=== PATIENT | male | born 1955 | race Caucasian/White ===

== ENCOUNTER → 2018-01-11 | Outpatient (CLI) | payer BC ==
[~2018-01-11] MED LIST: ASPI-999 PO; CATHETER FLUSH 10 ML SYR IV PRN; CIPR-225 PO; REGADENOSON 0.4 MG/5 ML SYR (LEXISCAN) IV ONE; tumeric PO
[2018-01-11 08:59] VITALS: BP 148/93
--- NOTE | 2018-01-11 13:27 | STRESS TEST ---
DATE OF SERVICE: 01/11/2018 RESTING AND POST REGADENOSON TECHNETIUM-99M TETROFOSMIN SPECT CT IMAGING ORDERING PHYSICIAN: Dr. Milton. CLINICAL DIAGNOSIS: Complete heart block, status post pacemaker implantation. Baseline images were carried out after injection of 10.97 mCi technetium-99m Tetrofosmin for stress imaging. This was followed by 0.4 mg regadenoson and 31.3 mCi of technetium-99m Tetrofosmin for stress imaging. The electrocardiogram showed sinus rhythm with right bundle branch block and intermittent premature ventricular contractions throughout the study. The electrocardiogram did not change significantly. The patient tolerated the procedure well. Review of images at rest and following stress does not indicate any significant perfusion defects consistent with significant myocardial ischemia or infarction. Gated images show normal global left ventricular systolic function with normal regional wall motion. Left ventricular ejection fraction is calculated to be 57%. Left ventricular end diastolic volume is 64 mL. TID is absent (1.04). CONCLUSIONS: 1. No evidence of any significant myocardial ischemia or infarction on this study. 2. Normal regional wall motion. 3. Normal global left ventricular systolic function with a calculated ejection fraction of 57%. Job ID: [id number] DocumentID: [id number] Dictated Date: 01/11/2018 10:30:12 Safety Admin Assistant Date: 01/11/2018 13:26:56 Dictated By: MAURICE MILTON MD, MA, FACP, FACC,
== END ==
LOC: CARD 07:04
PROVIDERS: ATTEND Internal Medicine Cardiovascular Disease
DX: I44.2 Atrioventricular block, complete (principal); E66.8 Other obesity; Z95.0 Presence of cardiac pacemaker; Z86.73 Personal history of transient ischemic attack (TIA), and cerebral infarction without residual deficits
CPT/HCPCS: 78452; 93017

== ENCOUNTER 2018-01-16 10:03 | Day surgery (SDC) | payer BC ==
[2018-01-16] VITALS (10 sets, daily range): BP systolic 100–129; BP diastolic 67–86
[~2018-01-16] VITALS: Ht 170.2 cm; Wt 98.0 kg
[~2018-01-16 10:03] MED LIST changes: -CATHETER FLUSH 10 ML SYR IV PRN; -REGADENOSON 0.4 MG/5 ML SYR (LEXISCAN) IV ONE; -tumeric PO
[2018-01-16] MEDS ORDERED: NS IV 1000 ML 1,000 ML ONE (10:14)
[2018-01-16] MEDS ORDERED: HEParin (CATH LAB) 2,000 ML IV ONE (10:14)
[2018-01-16] MEDS ORDERED: NS IV 1000 ML 1,000 ML IV SCH ×2 (10:30→16:21)
[2018-01-16] MEDS ORDERED: tumeric PO (10:53)
[2018-01-16 10:54] LABS: RED BLOOD COUNT 5.58 10^6/uL (4.35-5.85); RED CELL DISTRIBUTION WIDTH 14.8 % (10.0-14.5); WHITE BLOOD COUNT 7.2 10^3/uL (4.3-11.0)
[2018-01-16 11:10] LABS: INR 1.1 (0.8-1.4); PROTHROMBIN TIME PATIENT 13.7 SEC (12.2-14.7)
[2018-01-16 11:17] LABS: ALANINE AMINOTRANSFERASE 25 U/L (0-55); ALBUMIN 4.4 GM/DL (3.2-4.5); ALKALINE PHOSPHATASE 99 U/L (40-136); BUN/CREATININE RATIO 21; CALCIUM 9.5 MG/DL (8.5-10.1); CARBON DIOXIDE 27 MMOL/L (21-32); CHLORIDE 102 MMOL/L (98-107); CHOLESTEROL 187 MG/DL (< 200); CREATININE SERUM 0.91 MG/DL (0.60-1.30); GFR ESTIMATED > 60; GLUCOSE 101 MG/DL (70-105); HDL CHOLESTEROL 54 MG/DL (40-60); POTASSIUM 3.8 MMOL/L (3.6-5.0); SODIUM 141 MMOL/L (135-145); TOTAL PROTEIN 7.8 GM/DL (6.4-8.2); TRIGLYCERIDES 151 MG/DL (<150); VLDL CHOLESTEROL 30 MG/DL (5-40)
[2018-01-16] MEDS ORDERED: LIDOCAINE 1% INJ 20 ML 20 ML VIAL ONE (12:06)
[2018-01-16] MEDS ORDERED: diphenhydrAMINE 50 MG/ML INJ (BENADRYL) ONE (15:22)
[2018-01-16] MEDS ORDERED: MIDAZOLAM 5 MG/5 ML (VERSED) VIAL ONE (15:22)
[2018-01-16] MEDS ORDERED: fentaNYL INJECTION 100 MCG/2 ML AMP ONE (15:22)
--- NOTE | 2018-01-16 15:39 | Cardiac Procedure Note-CS/ASA ---
Pre-Procedure Note Pre-Op Procedure Note H&P Reviewed The H&P was reviewed, patient examined and no changes noted. Date H&P Reviewed: Jan 16, 2018 Time H&P Reviewed: 15:38 Conscious Sedation Pre-Proced Time Reviewed: 15:38 ASA Class: 3 Airway Mallampati Classification: (augustine appropriate class) I. II. III, IV Lungs Heart ASA score ASA 1: a normal healthy patient ASA 2: a patient with a mild systemic disease (mid diabetes, controlled hypertension, obesity ASA 3: a patient with a severe systemic disease that limits activity (angina , COPD, prior Myocardial infarction) ASA 4: a patient with an incapacitating disease that is a constant threat to life (CHF, renal failure) ASA 5: a moribund patient not expected to survive 24 hrs. (ruptured aneurysm) ASA 6: a declared brain patient whose organs are being harvested. For emergent operations, add the letter E after the classification Grade 2 Sedation Plan: Analgesia, Amnesia, Plan communicated to team members, Discussed options with patient/fam, Discussed risks with patient/fam Note The patient is an appropriate candidate to undergo the planned procedure, sedation, and anesthesia. The patient immediately re-assessed prior to indication. MAURICE CELIS MD FACP FAC CCDS Jan 16, 2018 15:38
--- NOTE | 2018-01-16 16:24 | Discharge Inst-Post CATH ---
Discharge Inst-CATH Post Cardiac Cath D/C Inst Follow Up/Plan F/u with Dr Milton in 3-4 weeks CARDIAC CATH DISCHARGE INSTRUCTIONS *Hold Metformin for 48 hours post heart cath. ACTIVITY * Go Home directly and rest. * Limit activity of the leg (or wrist if it was used) for 7 days including aerobics, swimming, jogging, bicycling, etc. * Restrict stair-climbing for 7 days if possible, if not, climb up with your non -cath leg, then bring together on the same step. * Avoid lifting, pushing, pulling or excessive movement of the affected extremity for 7 days. * Customary sexual activity may be resumed after 2 days-use caution not to use a position that strains or causes pain to the affected extremity. * No driving for 24 hours. * NO SMOKING. * Avoid straining for bowel movements for 7 days. * Gentle walking on level ground is allowed. * Returning to work will depend on the type of procedure and the results. Your doctor will discuss this with you. CALL YOUR DOCTOR FOR ANY OF THE FOLLOWING: *If bleeding from the puncture site occurs- Apply gentle pressure to site with clean cloth and call your doctor or EMS. * If a knot or lump forms under the skin, increases in size, or causes pain. * If bruising appears to be worsening or moving further down your leg instead of disappearing. * Temperature above 101 F. CARE OF YOUR GROIN INCISION; * Bruising or purple discoloration of the skin near the puncture site is common. * You may shower only, no bathtub bathing for 5 days. Be careful to avoid slipping as your leg may feel stiff. * If a closure device was used on your femoral artery, please see the attached guide regarding care of the device and your leg. * REMOVE the dressing from your groin the next day after your procedure in the shower. CARE OF YOUR WRIST INCISION; * Bruising or purple discoloration of the skin near the puncture site is common. * You may shower. * DO NOT submerge wrist. * Remove dressing in 24 hours. MAURICE MILTON MD [facility] CCDS Jan 16, 2018 16:24
[2018-01-16] MEDS ORDERED: ASPI-999 PO (16:25)
[2018-01-16] MEDS ORDERED: PATIENT MAY USE OWN MEDS, ALL PO SCH (16:30)
--- NOTE | 2018-01-16 20:08 | CARDIAC CATHETERIZATION ---
DATE OF SERVICE: 01/16/2018 CARDIAC CATHETERIZATION REPORT The patient is a 62-year-old man with complete heart block who has had a dual chamber pacemaker and his pacemaker has recently recorded a 9-beat run of nonsustained ventricular tachycardia. The concern was that he may have obstructive coronary artery disease. Cardiac catheterization was carried out today after having obtained an informed consent. PROCEDURE: He was brought to the cardiac catheterization laboratory in a fasting state. Right groin was prepared and draped in usual sterile fashion. Lidocaine 1% was used for local anesthesia. Modified Seldinger technique was used to advance a 5-Maltese sheath in the right femoral artery. A 5-Maltese JL4 catheter for left coronary angiography. A 5-Maltese JR4 catheter for right coronary angiography. A 5-Maltese pigtail catheter was used for left heart catheterization and left ventricular angiography. He tolerated the procedure well. Angiography of the right femoral artery was carried out through the sheath at the end of the procedure and, subsequently, Mynx was used to achieve hemostasis following sheath removal. He tolerated the procedure well. HEMODYNAMICS: Left ventricular end-diastolic pressure following coronary angiography was 12 mmHg. There is no significant pressure gradient on pullback across the aortic valve. Ascending aortic pressure was 128/80 with a mean of 100 mmHg. LEFT VENTRICULAR ANGIOGRAPHY: Left ventricular angiography was carried out in the right anterior oblique projection. Global left ventricular systolic function normal. No regional wall motion abnormalities are seen. Left ventricular ejection fraction of approximately 55% to 60%. There does not appear to be significant mitral regurgitation. CORONARY ANGIOGRAPHY: Left main coronary artery is short and free of significant disease. Left anterior descending artery does not exhibit significant disease. Left circumflex artery is dominant, does not exhibit significant disease. Right coronary artery is nondominant and does not exhibit significant disease. CONCLUSIONS: 1. No angiographically significant obstructive coronary artery disease. 2. Normal global left ventricular systolic function with an ejection fraction of 55% to 60%. DISCUSSION AND RECOMMENDATIONS: Based on the results of the study, it appears appropriate to continue a conservative approach. Risk factor modification has been reviewed. Outpatient followup is advised. Job ID: [id number] DocumentID: [id number] Dictated Date: 01/16/2018 16:08:42 Director Stage Date: 01/16/2018 20:08:00 Dictated By: MAURICE CELIS MD, MA, FACP, FACC,
== END 2018-01-16 18:32 | disposition home or self-care (01) ==
LOC: CATH 10:03 → ICU 16:20 → CATH 18:32
PROVIDERS: ATTEND Internal Medicine Cardiovascular Disease
DX: I47.2 Ventricular tachycardia (principal); I44.2 Atrioventricular block, complete; Z11.2 Encounter for screening for other bacterial diseases; E66.9 Obesity, unspecified; Z68.34 Body mass index [BMI] 34.0-34.9, adult; I69.334 Monoplegia of upper limb following cerebral infarction affecting left non-dominant side
CPT/HCPCS: 36415; 80053; 80061; 85027; 85610; 85730; 87081; 93458

== ENCOUNTER → 2019-07-15 | Outpatient (CLI) | payer BC ==
[~2019-07-15] MED LIST changes: +tumeric PO
--- NOTE | 2019-07-15 13:43 | Diagnostic Imaging Report ---
INDICATION: \Pre-MRI. TIME OF EXAMINATION: 1:41 PM. COMPARISON: 10/21/2017. FINDINGS: The dual lead left subclavian cardiac pacemaker remains in place with the lead tips in the region of the right atrium and right ventricle. No abandoned leads are identified. The lungs are clear. No effusion or pneumothorax is detected. IMPRESSION: No abandoned pacer leads are identified. Dictated by: Dictated on workstation # [id number]
--- NOTE | 2019-07-15 17:36 | Diagnostic Imaging Report ---
EXAMINATION: Left shoulder MRI without contrast, 07/15/2019. TECHNIQUE: Multiplanar, multisequence non contrast-enhanced MRI of the left upper extremity was accomplished. INDICATION: Wear and tear for years, left shoulder. Diffuse pain. COMPARISONS: None. FINDINGS: The supraspinatus and infraspinatus tendons demonstrate no full-thickness tears. Within the anterior supraspinatus tendon, heterogeneous signal is noted. Findings are likely due to a partial bursal-sided tear with no full-thickness extension or retraction. The subscapularis tendon contains linear internal hyperintensity consistent with a partial intrasubstance tear. No discontinuity or full-thickness extension is appreciated. The long head of the biceps tendon lies within the bicipital groove. It is diffusely heterogeneous in nature. A longitudinal split tear is noted. Biceps tendon anchor appears to be intact. Diffuse degenerative signal throughout the labrum is noted; an underlying labral tear not excluded on this noncontrast examination. Cystic changes in the anterior and inferior posterior labrum could represent small paralabral cysts, and if concern for a labral tear, post-arthrogram imaging recommended. Heterogeneous fluid intensity noted along the course of the biceps tendon sheath. This is likely complex fluid along the sheath or could even represent a ganglion adjacent to the sheath. A more aggressive cystic type lesion felt to be unlikely given the appearance; however, if no surgical intervention is performed, follow-up is recommended. Degenerative signal is seen throughout the acromioclavicular joint. There is some atrophy of the supraspinatus muscle. Remaining musculature is well preserved. There is a nonspecific T2 hyperintensity within the subcutaneous soft tissues of the lateral shoulder. This measures 17 mm in greatest dimension and is of uncertain etiology. It is fairly superficial. Clinical correlation with physical examination recommended. This should be followed clinically to exclude any interval increase in size or suspicious changes. IMPRESSION: 1. Partial tear of the anterior supraspinatus tendon with the infraspinatus tendon intact. 2. Partial intrasubstance tear of the subscapularis tendon. 3. Suspected labral tears given the changes about the labrum; however, please see above discussion and recommendations. 4. Degenerative findings throughout the joint with a joint effusion and diffuse spurring throughout the glenohumeral joint space, not mentioned above. 5. Nonspecific cystic septated collection along the course of the biceps tendon, most likely either complex fluid in the sheath over an adjacent ganglion; please see above discussion. An adjacent longitudinal split tear of the long head of the biceps tendon is seen. 6. Nonspecific cystic-like lesion subcutaneous in nature along the posterior superior shoulder. Clinical follow-up recommended. Dictated by: Dictated on workstation # [id number]
== END ==
LOC: RAD 13:24
PROVIDERS: ATTEND Nurse Practitioner Family
DX: Z01.818 Encounter for other preprocedural examination (principal); M75.102 Unspecified rotator cuff tear or rupture of left shoulder, not specified as traumatic; M19.012 Primary osteoarthritis, left shoulder; M67.814 Other specified disorders of tendon, left shoulder; Z95.0 Presence of cardiac pacemaker
CPT/HCPCS: 71045; 73221